=== PATIENT | male | born 1955 | race Caucasian/White ===

== ENCOUNTER 2016-11-21 18:16 | Emergency (ER) | payer OTHER ==
[~2016-11-21] VITALS: Ht 182.9 cm; Wt 99.7 kg
[~2016-11-21 18:16] MED LIST: CITA20TA4 PO; ERGO50000 PO; METO25CR PO; SOTA120T17 PO; TEST-25 IM; WARF7.5 PO
[2016-11-21 18:19] VITALS: BP 121/78; PULSE 64; RESP 18; TEMP 97.8; O2SAT 100
[2016-11-21] MEDS ORDERED: WARF-22 PO (18:33)
[2016-11-21] MEDS ORDERED: LISI10TA3 PO (18:33)
[2016-11-21] MEDS ORDERED: CITA20TA4 PO (18:33)
[2016-11-21] MEDS ORDERED: WARF-23 PO (18:33)
[2016-11-21] MEDS ORDERED: ASPI81CH37 CHEW (18:33)
[2016-11-21] MEDS ORDERED: SODIUM CHLOR 0.9% 1000 ML INJ 1,000 ML IV SCH (18:40)
--- NOTE | 2016-11-21 18:44 | PD ---
HPI Chief Complaint: Abdominal Pain Time Seen by Provider: 18:35 Travel History International Travel<30 days: No Contact w/Intl Traveler<30days: No Traveled to known affect area: No History of Present Illness HPI 61-year-old male with history of aortic valve repair, on Coumadin, here from [facility] for the [facility], here in the emergency department today for evaluation of abdominal pain. The patient reports having epigastric abdominal pain since yesterday. Pain described as an ache, radiates to his bilateral flank. Pain is moderate, constant, better with laying flat. He denies fevers or chills. No nausea or vomiting. History of appendectomy. PFSH Past Medical History Hx Anticoagulant Therapy: Yes Atrial Fibrillation: Yes Cardiovascular Problems: Yes (CABG, VALVE REPLACEMENT) Diminished Hearing: No Hypertension: Yes Tetanus Vaccination: Unknown Influenza Vaccination: No ?: Not Past Surgical History Cardiac Surgery: Yes (ARTIFICIAL HEART VALVE) Social History Alcohol Use: Yes (OCC) Tobacco Use: No Substance Use: No Allergies-Medications (Allergen,Severity, Reaction): Coded Allergies: No Known Allergies (Verified , 11/21/16) Reported Meds & Prescriptions Reported Meds & Active Scripts Active Reported Warfarin 10 Mg Tab 10 Mg PO DAILY Warfarin 5 Mg Tab 5 Mg PO DAILY Aspirin Low Dose (Aspirin) 81 Mg Chew 81 Mg CHEW DAILY Lisinopril 10 Mg Tab 10 Mg PO DAILY Citalopram (Citalopram Hydrobromide) 20 Mg Tab 20 Mg PO DAILY Review of Systems Except as stated in HPI: all other systems reviewed are Neg Physical Exam Narrative GENERAL: Well-developed, well-nourished, comfortable, no acute distress. SKIN: Focused skin assessment warm/dry. HEAD: Atraumatic. Normocephalic. EYES: Pupils equal and round. No scleral icterus. No injection or drainage. ENT: Mucous membranes pink and moist. NECK: Trachea midline. No JVD. CARDIOVASCULAR: Regular rate and rhythm. RESPIRATORY: No accessory muscle use. Clear to auscultation. Breath sounds equal bilaterally. GASTROINTESTINAL: Abdomen soft, nondistended. Mild epigastric tenderness without peritoneal signs. Rest of abdomen is soft and nontender. Normal bowel sounds. MUSCULOSKELETAL: No obvious deformities. No clubbing. No cyanosis. No edema. NEUROLOGICAL: Awake and alert. No obvious cranial nerve deficits. Motor grossly within normal limits. Normal speech. PSYCHIATRIC: Appropriate mood and affect; insight and judgment normal. Data Data Last Documented VS Vital Signs Date Time Temp Pulse Resp B/P Pulse Ox O2 Delivery O2 Flow Rate FiO2 11/21/16 19:12 100 Room Air 11/21/16 19:12 66 18 127/74 11/21/16 18:19 97.8 Orders Complete Blood Count With Diff (11/21/16 18:40) Comprehensive Metabolic Panel (11/21/16 18:40) Lipase (11/21/16 18:40) Prothrombin Time / Inr (Pt) (11/21/16 18:40) Act Partial Throm Time (Ptt) (11/21/16 18:40) Urinalysis - C+S If Indicated (11/21/16 18:40) Ct Abd/Pel W Iv Contrast(Rout) (11/21/16 18:40) Iv Access Insert/Monitor (11/21/16 18:40) Ecg Monitoring (11/21/16 18:40) Oximetry (11/21/16 18:40) Pantoprazole Inj (Protonix Inj) (11/21/16 18:45) Sodium Chlor 0.9% 1000 Ml Inj (Ns 1000 M (11/21/16 18:40) Sodium Chloride 0.9% Flush (Ns Flush) (11/21/16 18:45) Electrocardiogram (11/21/16 18:40) Al-Mag Hy-Si 40-40-4 Mg/Ml Liq (Mag-Al P (11/21/16 18:45) Lidocaine 2% Viscous (Xylocaine 2% Visco (11/21/16 18:45) Ckmb (Isoenzyme) Profile (11/21/16 18:40) Troponin I (11/21/16 18:40) Iohexol 350 Inj (Omnipaque 350 Inj) (11/21/16 20:13) Labs Laboratory Tests Test 11/21/16 11/21/16 18:53 20:13 White Blood Count 9.7 TH/MM3 Red Blood Count 4.53 MIL/MM3 Hemoglobin 15.3 GM/DL Hematocrit 43.4 % Mean Corpuscular Volume 95.9 FL Mean Corpuscular Hemoglobin 33.7 PG Mean Corpuscular Hemoglobin 35.2 % Concent Red Cell Distribution Width 13.0 % Platelet Count 187 TH/MM3 Mean Platelet Volume 8.5 FL Neutrophils (%) (Auto) 79.2 % Lymphocytes (%) (Auto) 11.7 % Monocytes (%) (Auto) 7.8 % Eosinophils (%) (Auto) 0.9 % Basophils (%) (Auto) 0.4 % Neutrophils # (Auto) 7.7 TH/MM3 Lymphocytes # (Auto) 1.1 TH/MM3 Monocytes # (Auto) 0.8 TH/MM3 Eosinophils # (Auto) 0.1 TH/MM3 Basophils # (Auto) 0.0 TH/MM3 CBC Comment DIFF FINAL Differential Comment Prothrombin Time 18.7 SEC Prothromb Time International 1.7 RATIO Ratio Activated Partial 32.6 SEC Thromboplast Time Sodium Level 138 MEQ/L Potassium Level 4.0 MEQ/L Chloride Level 102 MEQ/L Carbon Dioxide Level 26.0 MEQ/L Anion Gap 10 MEQ/L Blood Urea Nitrogen 23 MG/DL Creatinine 1.20 MG/DL Estimat Glomerular Filtration 62 ML/MIN Rate Random Glucose 114 MG/DL Calcium Level 9.2 MG/DL Total Bilirubin 1.4 MG/DL Aspartate Amino Transf 34 U/L (AST/SGOT) Alanine Aminotransferase 28 U/L (ALT/SGPT) Alkaline Phosphatase 79 U/L Total Creatine Kinase 93 U/L Troponin I LESS THAN 0.02 NG/ML Total Protein 7.3 GM/DL Albumin 4.1 GM/DL Lipase 149 U/L Urine pH 6.5 Urine Protein NEG mg/dL Urine Glucose (UA) NEG mg/dL Urine Ketones TRACE mg/dL Urine Occult Blood NEG Urine Nitrite NEG Urine Bilirubin NEG Urine Leukocyte Esterase NEG [facility] Medical Decision Making Medical Screen Exam Complete: Yes Emergency Medical Condition: Yes Interpretation(s) EKG: Sinus, rate 58, leftward axis, intraventricular conduction delay, Q waves in inferior leads, no acute ischemic abnormality. Differential Diagnosis Gastritis, peptic ulcer disease, pancreatitis, hepatobiliary disease, ACS Narrative Course Vital signs show heart rate 64, blood pressure 121/78, pulse ox 100% on room air , oral temp of 97.8F. CBC is essentially unremarkable. CMP is unremarkable. Lipase is 149. Cardiac enzymes are negative. CT abdomen pelvis: CONCLUSION: 1. Distended gallbladder with small calcified gallstones. 2. Mild hepatic steatosis. 3. Small subcentimeter hypodensities in the liver. These are nonspecific. They are likely related to cyst or hemangiomas. Patient and the patient's were made aware of all findings. He was given Protonix and a GI cocktail here in the emergency department and reports improvement in symptoms. I do not believe his symptoms are cardiopulmonary in nature. He did have some mild to moderate epigastric tenderness upon arrival to the emergency department without peritoneal signs. He is supposed to return to [place] where he lives tomorrow and is driving back with his . At this point he does not have an acute surgical abdomen, and is stable for discharge home with outpatient follow-up with his primary care physician when he returns to [place]. Patient informed on when to return to the emergency department. He will be discharged home with a prescription for Protonix as well as pain medication. Patient verbalizes understanding and agreement with plan. Diagnosis Primary Impression: Biliary colic Additional Impression: Epigastric abdominal pain Referrals: Primary Care Physician 3 days Additional Instructions: Follow-up with your primary care physician in the next 2-3 days when he returns to [place]. Take medications as prescribed. Return to the emergency department for worsening symptoms or any other concerns. Scripts Pantoprazole (Protonix)40 Mg Tab40 Mg PO DAILY #30 TAB Ref 0 Prov:Earl Juarez MD 11/21/16 Hydrocodone-Acetaminophen (Lortab)5-325 Mg Tab1 Tab PO Q6H PRN (PAIN) #15 TAB Ref 0 Prov:Earl Juarez MD 11/21/16 Disposition: 01 DISCHARGE HOME Condition: Stable Earl Juarez MD Nov 21, 2016 18:44
[2016-11-21] MEDS ORDERED: ALUMINUM/MAGNESIUM/SIMETH 30 ML CUP PO ONE (18:45)
[2016-11-21] MEDS ORDERED: PANTOPRAZOLE SODIUM 40 MG VIAL IVP ONE (18:45)
[2016-11-21] MEDS ORDERED: LIDOCAINE VISCOUS 2% SOLN 15 ML UDC PO ONE (18:45)
[2016-11-21] MEDS ORDERED: SODIUM CHLORIDE 0.9% FLUSH 10 ML FLUSH IV FLUSH PRN (18:45)
[2016-11-21 19:06] LABS: AUTOMATED NEUTROPHIL # 7.7 TH/MM3 (1.8-7.7); BASOPHIL % 0.4 % (0.0-2.0); EOSINOPHIL # 0.1 TH/MM3 (0-0.4); EOSINOPHIL % 0.9 % (0.0-4.0); HEMATOCRIT 43.4 % (39.0-51.0); HEMO FLAGS DIFF FINAL; LYMPH % 11.7 % (9.0-44.0); LYMPHOCYTE # 1.1 TH/MM3 (1.0-4.8); MEAN CELL VOLUME 95.9 FL (80.0-100.0); MEAN CORPUSCULAR HEMOGLOBIN 33.7 PG (27.0-34.0); MEAN CORPUSCULAR HGB CONC 35.2 % (32.0-36.0); MONO % 7.8 % (0.0-8.0); NEUT % 79.2 % (16.0-70.0); PLATELET COUNT 187 TH/MM3 (150-450); RED BLOOD COUNT 4.53 MIL/MM3 (4.50-5.90); WHITE BLOOD COUNT 9.7 TH/MM3 (4.0-11.0)
[2016-11-21 19:12] VITALS: BP 127/74; PULSE 66; RESP 18; O2SAT 100
[2016-11-21 19:20] LABS: CHLORIDE 102 MEQ/L (98-107); SODIUM (NA) 138 MEQ/L (136-145)
[2016-11-21 19:23] LABS: ANION GAP 10 MEQ/L (5-15)
[2016-11-21 19:24] LABS: BLOOD UREA NITROGEN 23 MG/DL (7-18)
[2016-11-21 19:25] LABS: APTT (PATIENT) 32.6 SEC (24.3-30.1); INTERNATIONAL NORMALIZED RATIO 1.7 RATIO; PROTHROMBIN TIME - PATIENT 18.7 SEC (9.8-11.6)
[2016-11-21 19:26] LABS: ALT (GPT) 28 U/L (12-78); AST (GOT) 34 U/L (15-37)
[2016-11-21 19:27] LABS: GLOMERULAR FILTRATION RATE 62 ML/MIN (>89)
[2016-11-21 19:28] LABS: TOTAL BILIRUBIN ADULT 1.4 MG/DL (0.2-1.0)
[2016-11-21 19:29] LABS: ALKALINE PHOSPHATASE 79 U/L (45-117)
[2016-11-21 19:58] LABS: CREATINE KINASE 93 U/L (39-308)
[2016-11-21] MEDS ORDERED: IOHEXOL 350 MG/ML 10 ML VIAL (for RAD DIAG) IV ONE (20:13)
[2016-11-21 20:18] LABS: BLOOD, URINE NEG (NEG); GLUCOSE,URINE NEG (NEG); KETONE, URINE TRACE mg/dL (NEG); NITRITE,URINE NEG (NEG); PH, URINE 6.5 (5.0-8.5)
--- NOTE | 2016-11-21 20:22 | RADRPT ---
EXAM DATE/TIME: 11/21/2016 19:52 [place] COMPARISON: No previous studies available for comparison. INDICATIONS : Upper abdominal pain since last night. IV CONTRAST: 100 cc Omnipaque 350 (iohexol) IV ORAL CONTRAST: No oral contrast ingested. RADIATION DOSE: 18.87 CTDIvol (mGy) MEDICAL HISTORY : Cardiovascular disease. Hypertension. Anticoagulant therapy. SURGICAL HISTORY : CABG Cardiac surgery. ENCOUNTER: Initial ACUITY: 2 days PAIN SCALE: 4/10 LOCATION: Bilateral upper quadrant TECHNIQUE: Volumetric scanning of the abdomen and pelvis was performed. Using automated exposure control and ad justment of the mA and/or kV according to patient size, radiation dose was kept as low as reasonably achievable to obtain optimal diagnostic quality images. DICOM format image data is available electro nically for review and comparison. FINDINGS: LOWER CHEST: The patient is status post sternotomy. There is a prosthetic aortic valve. There is mild atelectasis or consolidation at the right lung base. LIVER: There is minimal low density seen throughout the liver. There are at least 2 small subcentimeter hypo density seen in the liver. The gallbladder is distended. Small calcified gallstones are seen. SPLEEN: Normal size without lesion. PANCREAS: Within normal limits. KIDNEYS: Normal in size and shape. There is no mass, stone or hydronephrosis. ADRENAL GLANDS: Within normal limits. VASCULAR: There is no aortic aneurysm. BOWEL/MESENTERY: The stomach, small bowel, and colon demonstrate no acute abnormality. There is no free intraperitone al air or fluid. There appears to be a surgical suture line seen at the cecum likely from prior appen dectomy. ABDOMINAL WALL: Within normal limits. RETROPERITONEUM: There is no lymphadenopathy. BLADDER: No wall thickening or mass. REPRODUCTIVE: Within normal limits. INGUINAL: There is no lymphadenopathy or hernia. MUSCULOSKELETAL: There is degenerative change of the lower lumbar spine. Old healed right rib fractures are seen. CONCLUSION: 1. Distended gallbladder with small calcified gallstones. 2. Mild hepatic steatosis. 3. Small subcentimeter hypodensities in the liver. These are nonspecific. They are likely related to cyst or hemangiomas. Howie Cortez MD on November 21, 2016 at 20:14 Board Certified Radiologist. This report was verified electronically.
[2016-11-21 20:43] LABS: URINE COLOR YELLOW (YELLW/STRAW)
[2016-11-21 20:44] LABS: MUCUS URINE FEW /lpf (OCC); RBC, URINE 0-3 /hpf (0-3); SQUAMOUS EPITHELIAL CELL URINE 0-5 /hpf (0-5)
[2016-11-21] MEDS ORDERED: HYDR-3533 PO (20:44)
[2016-11-21] MEDS ORDERED: PROT40TA PO (20:44)
[2016-11-21 20:45] LABS: COMMENT (UR) CULT NOT INDICATED; CULTURE IF INDICATED CULT NOT INDICATED
[2016-11-21 20:48] VITALS: BP 133/78
--- NOTE | 2016-11-22 14:19 | EKG ---
Date Performed: 11/21/2016 Time Performed: 18:57:28 PTAGE: 61 years EKG: SINUS BRADYCARDIA INTRAVENTRICULAR CONDUCTION DELAY Consider INFERIOR MYOCARDIAL INFARCTION - age indeterminate ABNORMAL ECG PREVIOUS TRACING : 11/23/2010 10.38 Compared to previous tracing, patient is now in sinus joann cardia. DOCTOR: Benton Alvarez Interpretating Date/Time 11/22/2016 14:17:49
== END 2016-11-21 21:04 | disposition home or self-care (01) ==
LOC: PHED 18:16
DX: K80.50 Calculus of bile duct without cholangitis or cholecystitis without obstruction (principal); R10.13 Epigastric pain; R94.31 Abnormal electrocardiogram [ECG] [EKG]; I10 Essential (primary) hypertension; I48.91 Unspecified atrial fibrillation; Z79.01 Long term (current) use of anticoagulants; Z86.79 Personal history of other diseases of the circulatory system
CPT/HCPCS: 74177; 80053; 81001; 82550; 83690; 84484; 85025; 85610; 85730; 93005; 96361; 96374; 99285; C9113; J7030; Q9967